=== PATIENT | male | born 1980 | race Caucasian/White ===

== ENCOUNTER 2016-06-30 12:40 | Emergency (ER) | payer SELFPAY ==
[~2016-06-30] VITALS: Ht 177.8 cm; Wt 90.7 kg
[~2016-06-30 12:40] MED LIST: BUDE10.2 IH; CETI-176 PO; HYOS0.1283 SL; OMEP20TA7 PO; ONDA4TAB8 PO; TRAM-42 PO
[2016-06-30] MEDS ORDERED: RT-ALBUTEROL/IPRATROPIUM 3 ML (DUONEB) VIAL INH ONE (13:00)
[2016-06-30] MEDS ORDERED: DEXAMETHASONE PF 10 MG/ML (DECADRON) VIAL ONE (13:06)
[2016-06-30] MEDS ORDERED: DEXAMETHASONE PF 10 MG/ML (DECADRON) VIAL INH STA (13:07)
--- NOTE | 2016-06-30 13:07 | ED Respiratory ---
General Chief Complaint: Respiratory Problems Stated Complaint: SOA Nursing Triage Note: PT CO OF SOA, STARTED A COUPLE DAYS AGO HAS HX ASTHMA Source: patient Exam Limitations: no limitations History of Present Illness Time seen by provider: 12:55 Initial Comments Here with report of shortness of air that has been going on for the last few days. States that he works outside and thinks the cold may have activated his asthma. He is currently out of his Symbicort and that is probably not helping either. Denies fever or chills. Does have wheezing and shortness of breath. Timing/Duration: yesterday, getting worse Severity: moderate Prior Episodes/Possible Cause: occasional episodes Modifying Factors: Improves With Albuterol Inhaler Associated Symptoms: cough, No fever/chills, No nasal congestion, shortness of breath, No sinus infection, No sore throat, wheezing Allergies and Home Medications Allergies Coded Allergies: topiramate (Verified Allergy, Severe, STROKE LIKE SX. , 10/13/15) Home Medications Budesonide/Formoterol Fumarate 10.2 Gm Hfa.aer.ad, 2 PUFF IH BID, #1 Ref 0 Prescribed by: KATIE OCAMPO on 06/30/16 1315 Cetirizine HCl 10 Mg Tablet, 10 MG PO DAILY, (Reported) Omeprazole 20 Mg Tablet.dr, 20 MG PO DAILY, (Reported) Prednisone 20 Mg Tab, 40 MG PO DAILY, #10 Ref 0 Prescribed by: KATIE OCAMPO on 06/30/16 1315 Constitutional: see HPI, No chills, No fever EENTM: no symptoms reported Respiratory: see HPI, cough, short of breath, wheezing Cardiovascular: no symptoms reported Gastrointestinal: no symptoms reported Past Opisdkd-Pdlksv-Xwunht Hx Patient Social History Alcohol Use: Rarely Uses Recreational Drug Use: No Smoking Status: Never a Smoker Former Smoker/When Quit: Oct 13, 2015 Recent Foreign Travel: No Contact w/Someone Who Travel: No Recent Infectious Disease Expo: No Recent Hopitalizations: No Seasonal Allergies Seasonal Allergies: Yes Surgeries HX Surgeries: Yes (BACK SURGERY, RIGHT SHOULDER SURGERY) Surgeries: Orthopedic Respiratory Hx Respiratory Disorders: Yes Respiratory Disorders: Asthma Cardiovascular Hx Cardiac Disorders: No Neurological Hx Neurological Disorders: No Reproductive System Hx Reproductive Disorders: No Genitourinary Hx Genitourinary Disorders: No Gastrointestinal Hx Gastrointestinal Disorders: Yes (NO TESTS TO DX ULCERS) Gastrointestinal Disorders: Ulcer Musculoskeletal Hx Musculoskeletal Disorders: No Endocrine Hx Endocrine Disorders: No HEENT HX ENT Disorders: No Cancer Hx Cancer: No Psychosocial Hx Psychiatric Problems: No Integumentary HX Skin/Integumentary Disorder: No Blood Transfusions Hx Blood Disorders: No Reviewed Nursing Assessment Reviewed/Agree w Nursing PMH: Yes Physical Exam Vital Signs Vital Sign - Last 12Hours 06/30/16 12:42 Temp 98.2 Pulse 108 Resp 21 B/P (MAP) 124/90 Pulse Ox 97 Capillary Refill : Less Than 3 Seconds General Appearance: WD/WN, no apparent distress HEENT: PERRL/EOMI, pharynx normal Neck: full range of motion, supple Respiratory: accessory muscle use, wheezing, expiration Cardiovascular: no murmur, tachycardia Gastrointestinal: non tender, soft Extremities: non-tender, normal inspection Neurologic/Psychiatric: alert, oriented x 3 Skin: normal color, warm/dry Progress/Results/Core Measures Results/Orders My Orders Orders - KATIE OCAMPO MD Albuterol/Ipra Inhalation Soln (Duoneb I (06/30/16 13:00) Svn Sm Volume Nebulizer Rt-Rfs (06/30/16 12:59) Prednisone Tablet (Deltasone Tablet) (06/30/16 13:15) Dexamethasone Pf Injection (Decadron Pf (06/30/16 13:07) Dexamethasone Pf Injection (Decadron Pf (06/30/16 13:06) Albuterol Pre-Mix Nebs (Rt) (Proventil P (06/30/16 13:09) Medications Given in ED Current Medications Medications Dose Ordered Sig/Pari Route Start Time Stop Time Status Last Admin Dose Admin Albuterol Sulfate 2.5 mg STK-MED ONCE .ROUTE 06/30/16 13:09 06/30/16 13:13 DC 06/30/16 13:14 2.5 MG Albuterol/ Ipratropium 3 ml ONCE ONCE INH 06/30/16 13:00 06/30/16 13:02 DC 06/30/16 13:05 3 ML Prednisone 40 mg ONCE ONCE PO 06/30/16 13:15 06/30/16 13:16 DC 06/30/16 13:12 40 MG Vital Signs/I&O Vital Sign - Last 12Hours 06/30/16 06/30/16 06/30/16 3/29/17 12:42 13:05 13:09 13:14 Temp 98.2 Pulse 108 Resp 21 B/P (MAP) 124/90 Pulse Ox 97 96 98 97 Blood Pressure Mean: 101 Progress Note : Progress Note Seen and evaluated. Duo neb ordered. Albuterol neb ordered. Decadron 20 mg inhaled. Prednisone 40 mg by mouth. Overall patient is much improved after therapy. Discharged home with return precautions. Patient verbalize understanding instructions and agreement with plan. Departure Impression Impression: Primary Impression: Asthma with acute exacerbation Qualified Codes: J45.21 - Mild intermittent asthma with (acute) exacerbation Disposition: HOME, SELF-CARE Condition: Improved Departure-Patient Inst. Decision time for Depature: 13:50 Referrals: NO,LOCAL PHYSICIAN (PCP/Family) Primary Care Physician Patient Instructions: Asthma, Adult (DC), Carbon Monoxide Poisoning (DC) Add. Discharge Instructions: All discharge instructions reviewed with patient and/or family. Voiced understanding. Take medications as directed. Follow-up with Dr. Beltran for recheck next week. Return for worse pain, fever, vomiting, weakness, breathing problems or other concerns as needed. Scripts Budesonide/Formoterol Fumarate (Symbicort 160-4.5 Mcg Inhaler) 10.2 Gm Hfa.aer.ad 2 PUFF IH BID, #1 INHALER 0 Refills Prov: KATIE OCAMPO MD 06/30/16 Prednisone (Prednisone) 20 Mg Tab 40 MG PO DAILY, #10 TAB 0 Refills Prov: KATIE OCAMPO MD 06/30/16 KATIE OCAMPO MD Jun 30, 2016 13:07
[2016-06-30] MEDS ORDERED: RT-ALBUTEROL SULF 2.5 MG/3 ML PRE-MIX VIAL ONE (13:09)
[2016-06-30] MEDS ORDERED: predniSONE 20 MG TAB PO ONE (13:15)
[2016-06-30] MEDS ORDERED: BUDE10.2 IH (13:15)
[2016-06-30] MEDS ORDERED: PRD20T PO (13:15)
[2016-06-30 14:00] VITALS: BP 125/81
--- OUTSIDE RECORDS SUMMARY | 2016-07-25 04:38 | XMS REPORT ---
Author Author [facility] Medical Staff Organization [facility] Address [address] [place], [place] [address] Phone [phone] Summary purpose CCDA Sent to [facility] Chief Complaint and Reason for Visit Admit Diagnosis 1 ALLERGIC RHINITIS NOS Problem list No authorized problems tracked for continuity of care are available for this visit. Encounters No authorized problems tracked for encounter diagnoses are available for this visit. Medications No home medications recorded for this patient visit Allergies, adverse reactions, alerts No allergy information is available for this patient. Immunizations No immunizations recorded for this patient visit Relevant diagnostic tests and/or laboratory data No authorized results are available for this patient visit History of procedures Procedure Code Code Type Description Date Performed Performing Physician 78710 CPT-4 OFFICE/OUTPATIENT VISIT NEW 08-21-2014 TREY TURNER J1040 CPT-4 METHYLPREDNISOLONE 80 MG INJ 08-21-2014 TREY TURNER Functional status No functional or cognitive status observations are available for this visit. Vital signs No authorized vital signs are available for this visit. Social history No Social History or smoking status observations were recorded for this visit. ( Unknown if ever smoked.) Treatment Plan No treatment plan text is available for this visit. Hospital discharge instructions No discharge instruction text is available for this visit.
--- OUTSIDE RECORDS SUMMARY | 2016-07-25 04:38 | XMS REPORT | Continuity of Care Document ---
Author Author [facility] Organization [facility] Address Unknown Phone Unavailable Allergies Medications Problems Date Dx Coded Attending Type Code Diagnosis Diagnosed By 08/05/2014 Sarah Webster APRN W V82.89 SCREEN FOR OTH SPECIF CONDITIONS 08/21/2014 TREY TURNER MD 477.9 ALLERGIC RHINITIS NOS 10/07/2014 TREY TURNER MD V70.5 HEALTH EXAM-GROUP SURVEY Procedures Code [place] [address] OFFICE/OUTPATIENT VISIT, TERY LOPEZ MD 08/21/2014 J1040 METHLPREDNISOLONE ACETATE TREY TURNER MD 08/21/2014 57261 OFFICE/OUTPATIENT VISIT, TREY TORRES MD 10/07/2014 Results Encounters ACCT No. Visit Date/Time Discharge Status Pt. Type Provider Facility Loc./Unit Complaint [id number] 08/05/2014 10:41:00 2014 10:41:00 DIS Outpatient Sarah Webster APRN [facility] [place]
--- OUTSIDE RECORDS SUMMARY | 2016-07-25 04:38 | XMS REPORT | Continuity of Care Document ---
Author Author [facility] Organization [facility] Address Unknown Phone Unavailable Allergies Medications Problems Date Dx Coded Attending Type Code Diagnosis Diagnosed By 08/05/2014 Sarah Webster APRN W V82.89 SCREEN FOR OTH SPECIF CONDITIONS 08/21/2014 TREY TURNER MD 477.9 ALLERGIC RHINITIS NOS 10/07/2014 TREY TURNER MD V70.5 HEALTH EXAM-GROUP SURVEY Procedures Code Description [place] [address] OFFICE/OUTPATIENT VISIT, TREY LOPEZ MD 08/21/2014 J1040 METHLPREDNISOLONE ACETATE TREY TURNER MD 08/21/2014 55660 OFFICE/OUTPATIENT VISIT, TREY TORRES MD 10/07/2014 Results Encounters ACCT No. Visit Date/Time Discharge Status Pt. Type Provider Facility Loc./Unit Complaint [id number] 08/05/2014 10:41:00 2014 10:41:00 DIS Outpatient Sarah Webster APRN [facility] [place]
--- OUTSIDE RECORDS SUMMARY | 2016-07-25 04:39 | XMS REPORT ---
Author Author [facility] Medical Staff Organization [facility] Address [address] [place], [place] [id number] Phone [phone] Summary purpose CCDA Sent to [facility] Chief Complaint and Reason for Visit Admit Diagnosis 1 HEALTH EXAM-GROUP SURVEY Problem list No authorized problems tracked for [...] Code Type Description Date Performed Performing Physician 49420 CPT-4 OFFICE/OUTPATIENT VISIT EST 10-07-2014 TREY TURNER Functional status No functional or [...]
== END 2016-06-30 13:59 | disposition home or self-care (01) ==
LOC: EDUNIT# 12:40 → ER 12:42
DX: J45.901 Unspecified asthma with (acute) exacerbation (principal)
CPT/HCPCS: 94640